=== PATIENT | female | born 1955 | race Caucasian/White ===

== ENCOUNTER 2019-09-23 11:05 | Emergency (ER) | payer MEDICAID ==
[~2019-09-23] VITALS: Ht 157.5 cm; Wt 59.1 kg
[2019-09-23 11:18] VITALS: BP 155/87
[2019-09-23] MEDS ORDERED: DEXA6TAB6 PO (12:14)
[2019-09-23] MEDS ORDERED: ALBU8HFA PO (12:14)
== END 2019-09-23 12:22 | disposition home or self-care (01) ==
LOC: ER 11:06
DX: J06.9 Acute upper respiratory infection, unspecified (principal); R05 Cough; R09.89 Other specified symptoms and signs involving the circulatory and respiratory systems; Z20.828 Contact with and (suspected) exposure to other viral communicable diseases; I10 Essential (primary) hypertension; F17.200 Nicotine dependence, unspecified, uncomplicated; Z79.899 Other long term (current) drug therapy
CPT/HCPCS: 36415; 71045; 99284; U0003

== ENCOUNTER 2020-10-23 08:26 | Day surgery (SDC) | payer MEDICAID ==
[~2020-10-23] VITALS: Ht 157.5 cm; Wt 50.9 kg
[~2020-10-23 08:26] MED LIST: DEXA6TAB6 PO
[2020-10-23] MEDS ORDERED: normal saline 1000ml 1,000 ML IV SCH (08:50)
[2020-10-23 09:28] VITALS: BP 131/82
[2020-10-23] MEDS ORDERED: ESCI10TA PO (09:37)
[2020-10-23] MEDS ORDERED: NAPR220T67 PO (09:37)
[2020-10-23] MEDS ORDERED: LISI20TA28 PO (09:37)
== END 2020-10-23 11:11 | disposition home or self-care (01) ==
LOC: SSTAY O 08:26
PROVIDERS: ATTEND Radiology Diagnostic Radiology
DX: R91.1 Solitary pulmonary nodule (principal); Z53.8 Procedure and treatment not carried out for other reasons; C09.9 Malignant neoplasm of tonsil, unspecified; C79.82 Secondary malignant neoplasm of genital organs; I10 Essential (primary) hypertension; Z98.51 Tubal ligation status; Z90.49 Acquired absence of other specified parts of digestive tract; Z79.899 Other long term (current) drug therapy; Z85.828 Personal history of other malignant neoplasm of skin

== ENCOUNTER 2022-04-21 08:52 | Day surgery (SDC) | payer MEDICAID ==
[~2022-04-21] VITALS: Ht 157.5 cm; Wt 49.3 kg
[~2022-04-21 08:52] MED LIST changes: -DEXA6TAB6 PO; +ESCI10TA PO; +LISI20TA28 PO; +NAPR220T67 PO
[2022-04-21] MEDS ORDERED: albumin 25% 100mL bottle x 1 IV PRN (09:10)
[2022-04-21] MEDS ORDERED: normal saline 1000ml 1,000 ML IV PRN (09:10)
[2022-04-21] MEDS ORDERED: LOSA25TA41 PO (09:15)
[2022-04-21] MEDS ORDERED: GABA-530 PO (09:17)
[2022-04-21] MEDS ORDERED: GABAPENTIN (09:17)
[2022-04-21 09:44] VITALS: BP 161/89
[2022-04-21 09:58] LABS: BASOPHILS # (AUTO) 0.1 X10'3 (0-0.2); BASOPHILS % (AUTO) 1.8 % (0-1); EOSINOPHILS % (AUTO) 1.2 % (0-6); HEMATOCRIT 37.3 % (35.0-45.0); HEMOGLOBIN 12.6 g/dl (12.0-16.0); LYMPHOCYTES # (AUTO) 0.4 X10'3 (1.1-4.8); LYMPHOCYTES % (AUTO) 14.1 % (21-51); MEAN CORPUSCULAR HEMOGLOBIN 30.6 PG (27.0-31.0); MEAN CORPUSCULAR HGB CONC 33.8 g/dL (33.0-36.5); MEAN CORPUSCULAR VOLUME 90.6 FL (78-98); MEAN PLATELET VOLUME 6.8 FL (7.4-10.4); MONOCYTES # (AUTO) 0.3 X10'3 (0-0.9); MONOCYTES % (AUTO) 8.2 % (2-12); NEUTROPHILS # (AUTO) 2.3 X10'3 (1.8-7.7); NEUTROPHILS % (AUTO) 74.7 % (42-75); PLATELET COUNT 250 X10'3 (140-440); RED BLOOD COUNT 4.12 X10'6 (4.20-5.60); RED CELL DISTRIBUTION WIDTH 14.2 % (11.5-14.5); WHITE BLOOD COUNT 3.1 X10'3 (4.5-11.0)
[2022-04-21 10:14] LABS: ALBUMIN 3.9 G/DL (3.4-5.0); ANION GAP 8 (8-16); BLOOD UREA NITROGEN 9 MG/DL (7-18); BUN/CREATININE RATIO 10.7 (6.6-38.0); CALCIUM 9.5 MG/DL (8.5-10.1); CHLORIDE 98 MMOL/L (99-107); CREATININE 0.84 MG/DL (0.40-0.90); GLUCOSE 85 MG/DL (70-104); POTASSIUM 4.4 MMOL/L (3.5-5.1); SODIUM 132 MMOL/L (135-145); TOTAL CARBON DIOXIDE 25.6 MMOL/L (24-32); eGFR 68 ML/MIN
[2022-04-21] MEDS ORDERED: midazolam 1 mg/ML 2ml injection ONE (11:17)
[2022-04-21] MEDS ORDERED: fentaNYL/PF 50MCG/1 ML 2ML syringe ONE (11:17)
[2022-04-21] MEDS ORDERED: LIDOcaine 1% (10mg/ml) 2ml vial ONE (11:17)
[2022-04-21 11:23] VITALS: BP 133/79
[2022-04-21 11:28] VITALS: BP 139/76
[2022-04-21 11:33] VITALS: BP 134/79
--- NOTE | 2022-04-21 12:00 | NUR ---
Pt returned from Angio, procedure cancelled. Discharged to home via ambulatory accompanied by RN.
== END 2022-04-21 12:05 | disposition home or self-care (01) ==
LOC: SSTAY O 08:52
PROVIDERS: ATTEND Radiology Diagnostic Radiology
DX: R91.8 Other nonspecific abnormal finding of lung field (principal); Z53.8 Procedure and treatment not carried out for other reasons; C11.9 Malignant neoplasm of nasopharynx, unspecified; I10 Essential (primary) hypertension; F32.A Depression, unspecified; Z79.899 Other long term (current) drug therapy; Z79.01 Long term (current) use of anticoagulants
CPT/HCPCS: 36415; 71250; 80048; 85025; 85610; J2250; J3010; J3490; J7030; A4421; A4615; A6258; C1729; C1769